=== PATIENT | male | born 1970 | race Caucasian/White ===

== ENCOUNTER → 2017-08-13 | Outpatient (CLI) | payer OTHER, BC ==
[~2017-08-13] MED LIST: AUGMENTIN PO; CIPRO PO; METFORMIN; METRONIDAZOLE PO; MUCINEX D1 TAB.SR1 PO; PERCOCET 5-3251 TAB PO; VICODIN 5/1 TAB 5/50 PO; VOLTAREN75 MG PO; ZOFRAN PO; ZOLOFT PO; ZYRTEC PO
--- NOTE | ~2017-08-13 | US128 ---
[id number] [address] [address] [id number] O MR#: [id number] Acc #: [id number] NAME: ANTHONY TRUONG : 1970 SEX: M STUDY DATE/TIME: 08/13/2017 9:16 UNIT: [facility] ROOM: STUDY DESCRIPTION: Thyroid Attending Physician: Chela Marcano A.P.R.N. Referring Physician: Chela Marcano A.P.R.N. Ordering Physician: Chela Marcano A.P.R.N. Primary Care Physician: Chela Marcano A.P.R.N. MEDICAL IMAGING REPORT This report is preliminary unless electronic signature is present. EXAM Thyroid ultrasound 08/13/2017 CLINICAL HISTORY Thyromegaly on physical exam identified 1 month ago. FINDINGS The right lobe of the gland is heterogeneous in echotexture but without discrete nodule. Vascularity is normal to slightly increased. The left lobe of the gland is heterogeneous in echotexture without discrete nodule. Vascularity is overall slightly diminished. IMPRESSION Heterogeneous gland without discrete nodule on either side. Dictated by... Rich Solorio M.D. THIS IS AN ELECTRONICALLY VERIFIED REPORT Rich Solorio M.D. at 08/14/2017 2:06 PM PHILIP/hesham TD: 08/14/2017 06:44 JOB #: [id number] MEDICAL IMAGING REPORT Page 1 of 1
== END | disposition home or self-care (01) ==
LOC: SGUS 08:49
DX: E01.0 Iodine-deficiency related diffuse (endemic) goiter (principal)
CPT/HCPCS: 76536